=== PATIENT | female | born 1995 | race Caucasian/White ===

== ENCOUNTER 2016-09-28 21:10 | Emergency (ER) | payer OTHER ==
[~2016-09-28] VITALS: Ht 175.3 cm; Wt 54.4 kg
[~2016-09-28 21:10] MED LIST: MEGACE40 MG/ML PO
--- NOTE | 2016-09-28 22:12 | ED UPPER/LOWER EXTREMITY COMPL ---
History of Present Illness General Chief Complaint: Upper Extremity Problem Stated Complaint: R SHOULDER/ARM PAIN Source: patient Exam Limitations: no limitations Vital Signs & Intake/Output Vital Signs & Intake/Output Vital Signs Date Time Temp Pulse Resp B/P Pulse O2 O2 Flow FiO2 Ox Delivery Rate 09/28 2131 99 Room Air 09/28 2118 98.5 80 18 124/76 98 Room Air Allergies Coded Allergies: NO KNOWN ALLERGIES (02/24/13) Reconcile Medications Megestrol Acetate (Megace) 40 MG/ML NOE 10 ML PO DAILY APPITIE STIMULANT Triage Note: PT TO [facility] WITH C/O R SHOULDER PAIN RADIATING TO R ARM AND R SIDE OF NECK S/P PULLED R SHOULDER AT WORK 09/23. ALSO LIMITED ROM TO R SHOULDER AND NUMBNESS TO R FOREARM. VSS. PT TOOK PERCOCET AT HOME [employer]. Triage Nurses Notes Reviewed? yes : No Patient currently breastfeeds: No HPI: pt presents for eval of right shoulder and upper arm pain with radiation to hand. pt c/o numbnes and tingling as well. onset tuesday the day after pulling chainsaws on a pallet (750lbs). pain is constant and worsening. 1/10 pain currently after percocet (left over from tonsills last year). pain was up to a 7 /10 prior. no prior episodes. worse with movement. Past History Travel History Traveled to [place] past 21 day No Medical History Any Pertinent Medical History? 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 No Review of Systems Review of Systems Constitutional: Reports: no symptoms. EENTM: Reports: no symptoms. Respiratory: Reports: no symptoms. Cardiovascular: Reports: no symptoms. Gastrointestinal/Abdominal: Reports: no symptoms. Genitourinary: Reports: no symptoms. Musculoskeletal: Reports: see HPI. Skin: Reports: no symptoms. Neurological/Psychological: Reports: no symptoms. Hematologic/Endocrine: Reports: no symptoms. Immunological: Reports: no symptoms. All Other Systems: Reviewed and Negative Physical Exam Physical Exam General Appearance: see below Comments: Gen.: Well-nourished, well-developed, no acute respiratory distress. Head: Normocephalic, atraumatic. Eyes: Normal inspection bilaterally Ears: Normal inspection bilaterally Nose: Normal inspection, nasal cannula in place Throat/mouth : Moist mucosa Neck: Supple, full range of motion, no goiter Heart: Regular rate and rhythm Lungs: Quiet respirations Back: Normal range of motion Extremities: Neurologic: Cranial nerves grossly intact, speech is clear Skin: warm and dry Psychiatric: Calm, cooperative, no apparent delusions or hallucinations Progress Differential Diagnosis: dislocation, fracture, sprain, tendon injury Plan of Care: Orders Procedure Date/time Status Durable Medical Equipment 09/28 2221 Active Departure Departure Disposition: HOME OR SELF CARE Condition: Stable Clinical Impression Primary Impression: Sprain of right shoulder Qualifiers: Encounter type: initial encounter Shoulder sprain type: unspecified sprain Qualified Code: S43.401A - Unspecified sprain of right shoulder joint, initial encounter Referrals: MIL PHILIP,ANITRA Baldwin (PCP/Family) Additional Instructions: Rest your shoulder over the next 1-2 weeks. Ice and elevation over the next 48 hours. Voltaren as prescribed for pain. Flexeril (a muscle relaxer) at night as needed. Follow up with your primary care doctor in 2 weeks if not improved. Return if any concerns or sudden worsening. Thank you for choosing the [facility] Emergency Department for your care. It was a pleasure to serve you today. Orlando Issa M.D. [facility] Departure Forms: Customer Survey General Discharge Information Prescriptions: Current Visit Scripts Diclofenac Sodium 1 TAB PO BID PRN PAIN #14 TAB Cyclobenzaprine HCl 1 TAB PO TID PRN MUSCLE SPASMS #10 TAB
[2016-09-28] MEDS ORDERED: CYCLOBENZAPRINE10 M1 PO (22:28)
[2016-09-28] MEDS ORDERED: DICLOFENAC SODI75 M2 PO (22:28)
[2016-09-28 22:58] VITALS: BP 118/74
== END 2016-09-28 22:59 ==
LOC: ERH 21:10
DX: S43.401A Unspecified sprain of right shoulder joint, initial encounter (principal); X58.XXXA Exposure to other specified factors, initial encounter

== ENCOUNTER 2016-10-31 17:21 | Emergency (ER) | payer OTHER ==
[~2016-10-31] VITALS: Ht 175.3 cm; Wt 54.4 kg
[~2016-10-31 17:21] MED LIST changes: +CYCLOBENZAPRINE10 M1 PO; +DICLOFENAC SODI75 M2 PO
--- NOTE | 2016-10-31 19:31 | ED GENERAL ADULT ---
History of Present Illness General Chief Complaint: Abdominal Pain/Flank Pain Stated Complaint: ABD PAIN, NAUSEA Source: patient Exam Limitations: no limitations Vital Signs & Intake/Output Vital Signs & Intake/Output Vital Signs Date Time Temp Pulse Resp B/P Pulse O2 O2 Flow FiO2 Ox Delivery Rate 10/31 2200 98.7 90 16 120/74 99 Room Air 10/31 1908 Room Air 10/31 1725 98.0 91 20 126/73 99 Room Air ED Intake and Output 11/01 0000 10/31 1200 Intake Total 0 Output Total Balance 0 Intake, Oral 0 Patient 120 lb Weight Allergies Coded Allergies: No Known Allergies (10/31/16) Reconcile Medications Biotin (Unknown Strength) CAPSULE (Unknown Dose) PO DAILY SUPPLEMENT ( Reported) Bupropion HCl (Bupropion XL) 300 MG TAB.ER.24H 1 TAB PO DAILY MENTAL HEALTH ( Reported) Cholecalciferol (Vitamin D3) (Vitamin D) 2,000 UNIT CAPSULE 1 CAP PO DAILY SUPPLEMENT (Reported) Clonazepam 0.5 MG TABLET 1 TAB PO BID ANXIETY (Reported) Lamotrigine (Lamotrigine ER) 250 MG TAB.ER.24 1 TAB PO DAILY MENTAL HEALTH ( Reported) Testosterone Cypionate 200 MG/ML VIAL 1 ML IM Q2W HRT (Reported) Trazodone HCl 50 MG TABLET 1 TAB PO QPM MENTAL HEALTH/SLEEP (Reported) Triage Note: TRIAGE: PT TO ER C/C DIFFUSE MID ABD PAIN, ONSET 10 AM, CONSTANT SINCE ONSET THOUGH WAXES/WANES IN INTENSITY. STATE PAIN AT WORST IS 5/10, CURRENTLY RATES 3/10. DESCRIBES DULL/SHARP IN NATURE. PT CURRENTLY ON TESTOSTERONE HORMONE X 4 MONTHS. REPORTS MD ADVISED TO COME TO ER FOR EVAL FOR ?U/S, ?OVARIAN CYST. PT NO LONGER GETS MENSES, LMP >4 MONTHS AGO. STATES MENSES WAS "NEVER REGULAR ANYWAYS". +NAUSEA, -VOMIING, -DIARRHEA. LNBM ?YESTERDAY. DENIES URINARY S/S. Triage Nurses Notes Reviewed? yes Onset: Abrupt Duration: hour(s): Timing: recent history : No Patient currently breastfeeds: No HPI: 10/31/16 8:49 pm 21-year-old female presents to the emergency department complaining of periumbilical and epigastric abdominal pain. The patient is on multiple medications. She is transitioning. She is on testosterone, Klonopin, Wellbutrin, and Lamictal. She does smoke. She says that intermittently at the time when she would usually get her menstrual period; She would get periumbilical and lower abdominal pain. So she is requesting evaluation. She denies vomiting but admits to some nausea and no fever. The onset of the symptoms were abrupt, the duration was just over the past 12 hours although she said the symptoms are occurring intermittently over the past several months, the severity is significant as her symptoms required her to come to the emergency department for care. She denies any past surgical history. Past History Travel History Traveled to [place] past 21 day No Medical History Any Pertinent Medical History? 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 No Review of Systems Review of Systems Constitutional: Denies: fever. EENTM: Reports: no symptoms. Respiratory: Reports: no symptoms. Cardiovascular: Reports: no symptoms. GI: Denies: abdominal pain. Genitourinary: Reports: no symptoms. Musculoskeletal: Reports: no symptoms. Skin: Denies: rash. Neurological/Psychological: Reports: no symptoms. Hematologic/Endocrine: Reports: no symptoms. Physical Exam Physical Exam General Appearance: well developed/nourished, alert, awake, anxious Head: atraumatic, normal appearance Eyes: Bilateral: normal appearance, PERRL, EOMI. Ears, Nose, Throat: normal pharynx, normal ENT inspection Neck: normal inspection, supple, full range of motion Respiratory: normal breath sounds, chest non-tender, no respiratory distress Cardiovascular: regular rate/rhythm Peripheral Pulses: 4+ radial (R), 4+ radial (L) Gastrointestinal: soft, non-tender Back: normal range of motion Extremities: normal inspection, normal range of motion, no edema Neurologic/Psych: no motor/sensory deficits, awake, alert, oriented x 3 Skin: intact, normal color, warm/dry Core Measures ACS in differential dx? No CVA/TIA Diagnosis: No Severe Sepsis Present: No Septic Shock Present: No Progress Differential Diagnoses I considered the following diagnoses in my evaluation of the patient: [Ovarian cyst, , appendicitis, pyelonephritis, dysmenorrhea] Plan of Care: Orders Procedure Date/time Status Add-on Test (ER Only) 10/31 2026 Active TESTOSTERONE, TOTAL ONLY 10/31 1954 Complete LIPASE 11/01 1931 Complete HUMAN BETA HCG SCREEN 11/01 1931 Complete COMPREHENSIVE METABOLIC PANEL 11/01 1931 Complete CBC WITHOUT DIFFERENTIAL 11/01 1931 Complete AMYLASE 11/01 1931 Complete Laboratory Tests 10/31/161954: Anion Gap 9, Estimated GFR > 60, BUN/Creatinine Ratio 13.8, Glucose 82, Calcium 9.4, Total Bilirubin 0.8, AST 24, ALT 38, Alkaline Phosphatase 49, Total Protein 7.3, Albumin 4.5, Globulin 2.8, Albumin/Globulin Ratio 1.6, Amylase 47, Lipase 100, Total Testosterone 316.0 H, Total Beta HCG NEGATIVE, CBC w Diff NO MAN DIFF REQ, RBC 4.28, MCV 93.3, MCH 30.8, RDW 13.9, MPV 7.5, Gran % 58.8, Lymphocytes % 30.4, Monocytes % 8.7, Eosinophils % 1.9, Basophils % 0.2, Absolute Granulocytes 3.8, Absolute Lymphocytes 2.0, Absolute Monocytes 0.6, Absolute Eosinophils 0.1, Absolute Basophils 0, PUBS MCHC 33.0 Initial ED EKG: none Departure Departure Disposition: HOME OR SELF CARE Condition: Stable Clinical Impression Primary Impression: Abdominal pain Referrals: MIL PHILIP,ANITRA Baldwin (PCP/Family) Departure Forms: Customer Survey General Discharge Information Comments 10/31/16 9:37 PM Labs unremarkable. Abdomen; only minimally tender and the pain is intermittent for months. She was given a slip for an outpatient ultrasound. She was given a referral to follow up with primary care doctor tomorrow Critical Care Note Critical Care Note Critical Care Time: non-applicable
[2016-10-31] MEDS ORDERED: TESTOSTERO200 MG/1 M IM (19:43)
[2016-10-31] MEDS ORDERED: TRAZODONE HCL50 M1 PO (19:44)
[2016-10-31] MEDS ORDERED: BUPROPION XL300 M1 PO (19:44)
[2016-10-31] MEDS ORDERED: CLONAZEPAM0.5 M2 PO (19:44)
[2016-10-31] MEDS ORDERED: LAMOTRIGINE ER250 MG PO (19:44)
[2016-10-31] MEDS ORDERED: BIOTIN2500 MCG PO (19:45)
[2016-10-31] MEDS ORDERED: VITAMIN D2000 UNIT PO (19:45)
[2016-10-31 20:24] LABS: ABSOLUTE BASOPHIL COUNT 0 /CUMM (0.0-0.2); ABSOLUTE EOSINOPHIL COUNT 0.1 /CUMM (0.0-0.7); ABSOLUTE GRANULOCYTE CT 3.8 /CUMM (1.4-6.5); ABSOLUTE MONOCYTE COUNT 0.6 /CUMM (0.10-0.60); BASOPHIL % 0.2 % (0.0-2.0); EOSINOPHIL % 1.9 % (0-5); GRANULOCYTE % 58.8 % (42.2-75.2); HEMATOCRIT 39.9 % (37-47); MEAN CORPUSCULAR HGB 30.8 PG (27.0-31.0); MEAN CORPUSCULAR VOLUME 93.3 FL (81.0-99.0); MEAN PLATELET VOLUME 7.5 FL (7.4-10.4); PLATELET COUNT 225 /CUMM (130-400); RBC DISTRIBUTION WIDTH 13.9 % (11.5-14.5); RED BLOOD CELL CT 4.28 /CUMM (4.20-5.40); WHITE BLOOD CELL COUNT 6.5 /CUMM (4.8-10.8)
[2016-10-31 22:00] VITALS: BP 120/74
== END 2016-10-31 22:00 ==
LOC: ERH 17:21
PROVIDERS: Emergency Medicine
DX: R10.33 Periumbilical pain (principal); R10.13 Epigastric pain
CPT/HCPCS: 84403

== ENCOUNTER 2018-01-04 13:16 | Emergency (ER) | payer OTHER ==
[~2018-01-04] VITALS: Ht 175.3 cm; Wt 54.4 kg
[~2018-01-04 13:16] MED LIST changes: +BIOTIN2500 MCG PO; +BUPROPION XL300 M1 PO; +CLONAZEPAM0.5 M2 PO; +LAMOTRIGINE ER250 MG PO; +TESTOSTERO200 MG/1 M IM; +TRAZODONE HCL50 M1 PO; +VITAMIN D2000 UNIT PO
--- NOTE | 2018-01-04 14:36 | ED PSYCHIATRIC COMPLAINT ---
History of Present Illness General Chief Complaint: Psychiatric Related Complaint Stated Complaint: "HAVING BAD THOUGHTS OF KILLING MYSELF" Source: patient Exam Limitations: no limitations Vital Signs & Intake/Output Vital Signs & Intake/Output Vital Signs Date Time Temp Pulse Resp B/P B/P Pulse O2 O2 Flow FiO2 Mean Ox Delivery Rate 01/04 1905 98.4 74 18 125/60 100 Room Air 01/04 1603 98.2 64 18 120/56 100 Room Air 01/04 1442 Room Air 01/04 1351 97.0 77 20 112/71 98 Room Air Allergies Coded Allergies: No Known Allergies (10/31/16) Reconcile Medications Biotin (Unknown Strength) CAPSULE (Unknown Dose) PO DAILY SUPPLEMENT ( Reported) Bupropion HCl (Bupropion XL) 300 MG TAB.ER.24H 1 TAB PO DAILY MENTAL HEALTH ( Reported) Cholecalciferol (Vitamin D3) (Vitamin D) 2,000 UNIT CAPSULE 1 CAP PO DAILY SUPPLEMENT (Reported) Clonazepam 0.5 MG TABLET 1 TAB PO BID ANXIETY (Reported) Lamotrigine (Lamotrigine ER) 250 MG TAB.ER.24 1 TAB PO DAILY MENTAL HEALTH ( Reported) Testosterone Cypionate 200 MG/ML VIAL 1 ML IM Q2W HRT (Reported) Trazodone HCl 50 MG TABLET 1 TAB PO QPM MENTAL HEALTH/SLEEP (Reported) Triage Note: PT STATES SHE FEELS VERY HOPELESS, SI, DENIES PLAN BUT STATES IF SHE DID DO IT, IT WOULD BE SPUR OF THE MOMENT THING. 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 PT IS TRANSITIONING TO MALE, LIVES WITH MOTHER WHO IS SUPPORTIVE.PT STATE SHE THINKS ABOUT TAKING PILLS AND CHUGGING ALCOHOL AND NOT WAKING UP. JOB. Triage Nurses Notes Reviewed? yes Onset: Abrupt Duration: week(s): Timing: recent history : No Patient currently breastfeeds: No HPI: 22-year-old female comes into the emergency room for further evaluation of suicidal ideation. She reports that she is a female that is undergoing a sex change to a male. She is currently undergoing hormone therapy. She has a history of depression. She reports that she's been increasingly depressed with thoughts of suicide recently. She admits to marijuana use but denies any drug use. Denies any alcohol use. (Harvey CEBALLOS,Rajiv) Past History Travel History Traveled to [place] past 21 day No Medical History Any Pertinent Medical History? 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 No (Rajiv Aceves) Review of Systems Review of Systems Constitutional: Reports: no symptoms. EENTM: Reports: no symptoms. Respiratory: Reports: no symptoms. Cardiovascular: Reports: no symptoms. GI: Reports: no symptoms. Genitourinary: Reports: no symptoms. Musculoskeletal: Reports: no symptoms. Skin: Reports: no symptoms. Neurological/Psychological: Reports: see HPI. Hematologic/Endocrine: Reports: no symptoms. Immunologic/Allergic: Reports: no symptoms. All Other Systems: Reviewed and Negative (Rajiv Aceves) Physical Exam Physical Exam General Appearance: well developed/nourished, mild distress Head: atraumatic Eyes: Bilateral: normal appearance. Ears, Nose, Throat: normal ENT inspection, hearing grossly normal Neck: normal inspection Respiratory: normal breath sounds, no respiratory distress Cardiovascular: regular rate/rhythm Extremities: normal range of motion Neurological/Psychiatric: awake, alert, depressed affect Appearance/Memory/Insight: appropriate appearance Behavoir/Eye Contact/Speech: cooperative Thoughts/Hallucinations: no apparent hallucination Skin: intact, normal color, warm/dry SAD PERSONS SAD PERSONS Response Value Depression/Hopelessness? yes 2 Previous Attempts/Psych Care yes 1 Excessive Ethanol/Drug Use? yes 1 Single//? yes 1 Total 5 SAD PERSONS Done? yes (Rajiv Aceves) Progress Differential Diagnosis: dementia, drug intoxication, drug overdose, drug withdrawal, Depression, anxiety, bipolar, Plan of Care: Orders Procedure Date/time Status Regular Diet 01/04 D Active Continuous Observation Monitor 01/04 1454 Active ED CRISIS PSYCH CONSULT 01/04 1454 Active URINE 01/04 1436 Complete ETHANOL 01/04 1436 Complete COMPREHENSIVE METABOLIC PANEL 01/04 1436 Complete CBC WITHOUT DIFFERENTIAL 01/04 1436 Complete URINE DRUG SCREEN FOR ER ONLY 01/04 1411 Complete Laboratory Tests 01/04/18 1709: CBC w Diff NO MAN DIFF REQ, RBC 4.29, MCV 96.4, MCH 32.8 H, MCHC 34.0, RDW 12.8 , MPV 7.6, Gran % 71.1, Lymphocytes % 19.9 L, Monocytes % 7.2, Eosinophils % 1.4, Basophils % 0.4, Absolute Granulocytes 6.2, Absolute Lymphocytes 1.7, Absolute Monocytes 0.6, Absolute Eosinophils 0.1, Absolute Basophils 0 01/04/18 1455: Anion Gap 13, Estimated GFR > 60, BUN/Creatinine Ratio 13.8, Glucose 94, Calcium 9.9, Total Bilirubin 1.4 H, AST 17, ALT 25, Alkaline Phosphatase 51, Total Protein 7.6, Albumin 4.5, Globulin 3.1, Albumin/Globulin Ratio 1.5, Serum Alcohol < 10.0 01/04/18 1416: Urine Opiates Screen < 100, Methadone Screen < 40, Barbiturate Screen < 60, Ur Phencyclidine Scrn < 6.00, Amphetamines Screen < 100, U Benzodiazepines Scrn < 85, Urine Cocaine Screen < 50, Urine Cannabis Screen 25.80, Urine Test NEGATIVE Hand-Off Endorsed To: Simón Swan MD Endorsed Time: 1917 Pending: consult (crisis) (Rajiv Aceves) Comments: Patient cleared by psychiatry for discharge (Simón Swan MD) Departure Departure Condition: Stable Referrals: Gillian PHILIP,Adrian Baldwin (PCP/Family) Departure Forms: Customer Survey General Discharge Information (Rajiv Aceves) Departure Time of Disposition: 1935 Disposition: HOME OR SELF CARE Clinical Impression Primary Impression: Major depression Secondary Impressions: PTSD (post-traumatic stress disorder), Suicidal ideation 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 I have also reviewed all the pertinent lab results and diagnostic results. I agree with the findings and the plan of care as documented in the PA's/SERVER SERVICE ASSISTANT's documentation. [] I have reviewed the ED Record and agree with the PA's/SERVER SERVICE ASSISTANT's documentation. [] Additions or exceptions (if any) to the PAs/SERVER SERVICE ASSISTANT's note and plan are summarized below: [] (Simón Swan MD) PA/SERVER SERVICE ASSISTANT Co-Sign Statement Statement: ED Attending supervision documentation- [] I saw and evaluated the patient. I have also reviewed all the pertinent lab results and diagnostic results. I agree with the findings and the plan of care as documented in the PA's/SERVER SERVICE ASSISTANT's documentation. [] I have reviewed the ED Record and agree with the PA's/SERVER SERVICE ASSISTANT's documentation. [] Additions or exceptions (if any) to the PAs/SERVER SERVICE ASSISTANT's note and plan are summarized below: [] (Dayton Meng DO)
[2018-01-04 17:30] LABS: ABSOLUTE BASOPHIL COUNT 0 /CUMM (0.0-0.2); ABSOLUTE EOSINOPHIL COUNT 0.1 /CUMM (0.0-0.7); ABSOLUTE GRANULOCYTE CT 6.2 /CUMM (1.4-6.5); ABSOLUTE LYMPH COUNT 1.7 /CUMM (1.2-3.4); ABSOLUTE MONOCYTE COUNT 0.6 /CUMM (0.10-0.60); BASOPHIL % 0.4 % (0.0-2.0); EOSINOPHIL % 1.4 % (0-5); GRANULOCYTE % 71.1 % (42.2-75.2); HEMATOCRIT 41.3 % (37-47); MEAN CORPUSCULAR HGB 32.8 PG (27.0-31.0); MEAN CORPUSCULAR VOLUME 96.4 FL (81.0-99.0); MEAN PLATELET VOLUME 7.6 FL (7.4-10.4); PLATELET COUNT 249 /CUMM (130-400); RBC DISTRIBUTION WIDTH 12.8 % (11.5-14.5); RED BLOOD CELL CT 4.29 /CUMM (4.20-5.40); WHITE BLOOD CELL COUNT 8.7 /CUMM (4.8-10.8)
[2018-01-04 19:05] VITALS: BP 125/60
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
== END 2018-01-04 19:47 ==
LOC: ERH 13:16
PROVIDERS: Physician Assistant Medical
DX: F32.9 Major depressive disorder, single episode, unspecified (principal); F43.10 Post-traumatic stress disorder, unspecified; R45.851 Suicidal ideations; F12.10 Cannabis abuse, uncomplicated
CPT/HCPCS: 80307; 81025; G0463; G0480

== ENCOUNTER 2018-04-27 01:10 | Emergency (ER) | payer SELFPAY ==
[~2018-04-27 01:10] MED LIST changes: +IBUPROFEN800 M1 PO
--- NOTE | 2018-04-27 01:52 | ED PSYCHIATRIC COMPLAINT ---
History of Present Illness General Chief Complaint: ETOH/Drug Related Complaint Stated Complaint: BIBA, +ETOH Source: patient, old records, EMS Exam Limitations: no limitations Vital Signs & Intake/Output Vital Signs & Intake/Output Vital Signs Date Time Temp Pulse Resp B/P B/P Pulse O2 O2 Flow FiO2 Mean Ox Delivery Rate 04/27 0203 98.0 67 16 121/61 97 Room Air Allergies Coded Allergies: No Known Allergies (10/31/16) Reconcile Medications Biotin (Unknown Strength) CAPSULE (Unknown Dose) PO DAILY SUPPLEMENT ( Reported) Bupropion HCl (Bupropion XL) 300 MG TAB.ER.24H 1 TAB PO DAILY MENTAL HEALTH ( Reported) Cholecalciferol (Vitamin D3) (Vitamin D) 2,000 UNIT CAPSULE 1 CAP PO DAILY SUPPLEMENT (Reported) Clonazepam 0.5 MG TABLET 1 TAB PO BID ANXIETY (Reported) Ibuprofen 800 MG TABLET 1 TAB PO TID PRN pain Lamotrigine (Lamotrigine ER) 250 MG TAB.ER.24 1 TAB PO DAILY MENTAL HEALTH ( Reported) Testosterone Cypionate 200 MG/ML VIAL 1 ML IM Q2W HRT (Reported) Trazodone HCl 50 MG TABLET 1 TAB PO QPM MENTAL HEALTH/SLEEP (Reported) Triage Nurses Notes Reviewed? yes Onset: Just prior to arrival Duration: constant, gone now Timing: recent history Severity: severe Associated Symptoms: impaired concentration HPI: Prior to admission patient admits to drinking alcohol and smoking marijuana. He became obtunded friends called 911 and he was given Narcan for presumed opiate overdose. He denies opiate abuse fever chills nausea vomiting diarrhea abdominal pain chest pain shortness breath headache dysuria rash bleeding. Past History Travel History Traveled to [place] past 21 day No Medical History Any Pertinent Medical History? 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 No Review of Systems Review of Systems Constitutional: Reports: no symptoms. EENTM: Reports: no symptoms. Respiratory: Reports: no symptoms. Cardiovascular: Reports: no symptoms. GI: Reports: no symptoms. Genitourinary: Reports: no symptoms. Musculoskeletal: Reports: no symptoms. Skin: Reports: no symptoms. Neurological/Psychological: Reports: see HPI, confusion. Hematologic/Endocrine: Reports: no symptoms. Immunologic/Allergic: Reports: no symptoms. All Other Systems: Reviewed and Negative Physical Exam Physical Exam General Appearance: well developed/nourished, mild distress Head: atraumatic Eyes: Bilateral: PERRL, EOMI. Ears, Nose, Throat: normal pharynx, normal ENT inspection, hearing grossly normal Neck: normal inspection, supple Respiratory: normal breath sounds Cardiovascular: regular rate/rhythm Gastrointestinal: soft, non-tender Extremities: normal range of motion Neurological/Psychiatric: no motor/sensory deficits, awake, agitated, wick and base assembler II-XII nml as tested Appearance/Memory/Insight: disheveled, impaired insight Behavoir/Eye Contact/Speech: cooperative Thoughts/Hallucinations: no apparent hallucination Skin: intact, normal color, warm/dry SAD PERSONS Done? patient not suicidal Progress Differential Diagnosis: drug intoxication, drug overdose, drug withdrawal, electrolyte abnormality, hypoglycemia Plan of Care: Orders Procedure Date/time Status Patient Safety Monitor 04/27 520 Active Patient Safety Monitor 04/27 123 Active URINE DRUG SCREEN FOR ER ONLY 04/27 123 Complete ETHANOL 04/27 123 Complete COMPREHENSIVE METABOLIC PANEL 04/27 123 Complete CBC WITHOUT DIFFERENTIAL 04/27 123 Complete Laboratory Tests 04/27/18 0207: Urine Opiates Screen < 100, Methadone Screen < 40, Barbiturate Screen < 60, Ur Phencyclidine Scrn < 6.00, Amphetamines Screen < 100, U Benzodiazepines Scrn < 85, Urine Cocaine Screen < 50, Urine Cannabis Screen 70.90 H 04/27/18 0148: Anion Gap 9, Estimated GFR > 60, BUN/Creatinine Ratio 11.3, Glucose 107 H, Calcium 9.2, Total Bilirubin 0.5, AST 23, ALT 30, Alkaline Phosphatase 40, Total Protein 7.0, Albumin 4.3, Globulin 2.7, Albumin/Globulin Ratio 1.6, CBC w Diff NO MAN DIFF REQ, RBC 4.38 L, MCV 97.2 H, MCH 32.7 H, MCHC 33.7, RDW 13.5, MPV 7.4, Gran % 56.7, Lymphocytes % 30.8, Monocytes % 9.5 H, Eosinophils % 2.6, Basophils % 0.4, Absolute Granulocytes 3.8, Absolute Lymphocytes 2.1, Absolute Monocytes 0.6, Absolute Eosinophils 0.2, Absolute Basophils 0, Serum Alcohol 45.0 Departure Departure Time of Disposition: 354 Disposition: HOME OR SELF CARE Condition: Stable Clinical Impression Primary Impression: Marijuana intoxication Secondary Impressions: Alcohol causing toxic effect Referrals: Gillian PHILIP,Adrian Baldwin (PCP/Family) Departure Forms: General Discharge Information RELEASE- WORK
[2018-04-27 01:53] LABS: ABSOLUTE BASOPHIL COUNT 0 /CUMM (0.0-0.2); ABSOLUTE EOSINOPHIL COUNT 0.2 /CUMM (0.0-0.7); ABSOLUTE GRANULOCYTE CT 3.8 /CUMM (1.4-6.5); ABSOLUTE LYMPH COUNT 2.1 /CUMM (1.2-3.4); ABSOLUTE MONOCYTE COUNT 0.6 /CUMM (0.10-0.60); BASOPHIL % 0.4 % (0.0-2.0); EOSINOPHIL % 2.6 % (0-5); GRANULOCYTE % 56.7 % (42.2-75.2); HEMATOCRIT 42.6 % (42-52); MEAN CORPUSCULAR HGB 32.7 PG (27.0-31.0); MEAN CORPUSCULAR HGB CONC 33.7 G/DL (33.0-37.0); MEAN CORPUSCULAR VOLUME 97.2 FL (80.0-94.0); MEAN PLATELET VOLUME 7.4 FL (7.4-10.4); PLATELET COUNT 234 /CUMM (130-400); RBC DISTRIBUTION WIDTH 13.5 % (11.5-14.5); RED BLOOD CELL CT 4.38 /CUMM (4.70-6.10); WHITE BLOOD CELL COUNT 6.7 /CUMM (4.8-10.8)
[2018-04-27 04:02] VITALS: BP 99/52
== END 2018-04-27 04:08 ==
LOC: EDSEX 01:10 → ERH 01:10
PROVIDERS: Emergency Medicine
DX: F12.129 Cannabis abuse with intoxication, unspecified (principal); T51.91XA Toxic effect of unspecified alcohol, accidental (unintentional), initial encounter; F41.9 Anxiety disorder, unspecified; F32.9 Major depressive disorder, single episode, unspecified
CPT/HCPCS: 80307; G0480